=== PATIENT | male | born 1955 | race Hispanic/Latino ===

== ENCOUNTER 2016-08-09 06:35 | Day surgery (SDC) | payer OTHER ==
[2016-08-04 14:19] VITALS: BMI 26.6
[2016-08-09] MEDS ORDERED: Sevoflurane - Inhalation Anesthetic Liq (250 ml) ONE (07:17)
[2016-08-09 07:28] VITALS: RESP 18
[2016-08-09] MEDS ORDERED: Lactated Ringer's 1,000 ML IV ONE (08:00)
[2016-08-09] MEDS ORDERED: cefTRIAXone (Rocephin) 1 gm Inj ONE (08:38)
[2016-08-09] MEDS ORDERED: Chlorhexidine Gluconate 2OZ GEL TP ONE (08:39)
[2016-08-09] MEDS ORDERED: Midazolam 2 MG/2 ML VIAL ONE (08:56)
[2016-08-09] MEDS ORDERED: Propofol 10 mg/ml Inj (20 ML) ONE (08:56)
[2016-08-09] MEDS ORDERED: Succinylcholine 200 mg/10 ml Inj IV ONE (09:01)
[2016-08-09] MEDS ORDERED: cefTRIAXone (Rocephin) 1 gm Inj IVPB ONE (09:30)
[2016-08-09] MEDS ORDERED: HYDROmorphone 0.5 mg/0.5 ml ISec IVP PRN (10:05)
[2016-08-09 13:10] VITALS: BP 155/90; PULSE 67; TEMP 98.3; O2SAT 98
--- NOTE | 2016-08-10 17:01 | CARD ---
APPROVED REPORT EKG Measurement Heart [id number] <Conclusion> Normal sinus rhythm Normal ECG
--- NOTE | 2016-08-24 19:51 | OP ---
PROCEDURE DATE: 08/09/2016 PREOPERATIVE DIAGNOSIS: Urethral stricture. POSTOPERATIVE DIAGNOSIS: Multiple urethral strictures. PROCEDURE PERFORMED: Cystoscopy with an internal optical urethrotomy. DESCRIPTION OF PROCEDURE: The patient was placed on the operating room table in dorsal lithotomy pos ition, given general anesthesia. The area of the groin was draped and prepped in a sterile manner. At this time, using a cystoscope, I began to look into the urethra. Immediately at the proximal uret hra, there was noted to be a stricture. So at this time, I exchanged the cystoscope for a urethrotom e and I inserted a guidewire for safety and at this time, I began to incise at the 4 and 8 o'clock po sitions with an optical urethrotome. I passed by the first stricture. There was a secondary strictu re more proximal to the prostatic urethra and at this time, once these 2 strictures then were opened, the optical urethrotome then passed rather easily into the bladder. There was no unusual bladder wa ll finding. The prostate is only physiologically enlarged, not occlusive. At this time, I inserted a #22 [place] catheter into the bladder and the patient then was taken from the operating rudi m in good condition. Ariel Verma MD cc: 48 TT: 08/24/2016 19:49:54 saurav
== END 2016-08-09 13:24 | disposition home or self-care (01) ==
LOC: H.OPSURG 06:35
PROVIDERS: ATTEND Urology
DX: R33.8 Other retention of urine (principal); J45.909 Unspecified asthma, uncomplicated

== ENCOUNTER 2017-06-24 14:46 | Emergency (ER) | payer SELFPAY ==
[2017-06-24 14:46] VITALS: BMI 26.6
[2017-06-24 14:55] VITALS: RESP 18
--- NOTE | 2017-06-24 15:17 | ED PDOC ---
HPI: Male Pain Time Seen by Provider: 06/24/17 15:13 Chief Complaint (Nursing): Male Genitourinary Chief Complaint (Provider): URINARY HESITANCY History Per: Patient (61 Y/O MALE HERE WITH URINARY HESITANCY. SEEN BY DR. ROSA AND SENT TO ED FOR EVALUATION HE WAS UNABLE TO PLACE CATHETER IN OFFICE. DENIES ANY FEVERS/CHILLS.) Past Medical History Reviewed: Historical Data, Nursing Documentation, Vital Signs Vital Signs: Last Vital Signs Temp 98.6 F 06/24/17 14:52 Pulse 95 H 06/24/17 14:52 Resp 18 06/24/17 14:52 BP 161/102 H 06/24/17 14:52 Pulse Ox 98 06/24/17 14:52 - Medical History PMH: Asthma Denies: Chronic Kidney Disease - Family History Family History: States: Unknown Family Hx - Home Medications Home Medications: Ambulatory Orders Medication Instructions Recorded Albuterol HFA [Ventolin HFA 90 2 puff IH PRN PRN 08/09/16 mcg/actuation (8 g)] Cefuroxime Axetil [Cefuroxime] 500 mg PO BID #20 tablet 06/24/17 - Allergies Allergies/Adverse Reactions: Allergies Allergy/AdvReac Type Severity Reaction Status Date / Time No Known Allergies Allergy Verified 06/24/17 14:51 Review of Systems ROS Statement: Except As Marked, All Systems Reviewed And Found Negative Physical Exam - Reviewed Nursing Documentation Reviewed: Yes Vital Signs Reviewed: Yes - Physical Exam Appears: Positive for: Well, Non-toxic, No Acute Distress Head Exam: Positive for: ATRAUMATIC, NORMAL INSPECTION, NORMOCEPHALIC Skin: Positive for: Normal Color, Warm, DRY Eye Exam: Positive for: EOMI, Normal appearance, PERRL ENT: Positive for: Normal ENT Inspection Neck: Positive for: Normal, Painless ROM Cardiovascular/Chest: Positive for: Regular Rate, Rhythm Respiratory: Positive for: CNT, Normal Breath Sounds Gastrointestinal/Abdominal: Positive for: Normal Exam, Soft Back: Positive for: Normal Inspection Extremity: Positive for: Normal ROM Neurologic/Psych: Positive for: Alert, Oriented - Laboratory Results Result Diagrams: 06/24/17 17:28 06/24/17 17:28 - ECG O2 Sat by Pulse Oximetry: 98 - Progress ED Course And Treament: SEEN BY DR. HIGGINS IN ED. MORPHINE 2 MG IV X 1 DOSE ROCEPHIN 1 GM IV X 1 DOSE SUPRAPUBIC CATHETER PLACED BYDR. HIGGINS IN ED. PATIENT TO F/U WITH HIM OR DR. ROSA IN OFFICE. Disposition - Clinical Impression Clinical Impression: Urinary retention - Patient ED Disposition Is Patient to be Admitted: No - Disposition Referrals: Chris Higgins MD [Staff Provider] - Disposition: Routine/Home Disposition Time: 17:53 Condition: FAIR Prescriptions: Cefuroxime Axetil [Cefuroxime] 500 mg PO BID #20 tablet Instructions: Barnes Catheter, Male, Urinary Retention (DC) Forms: [facility] (Slovenian)
[2017-06-24] MEDS ORDERED: Lidocaine 2% Jelly (Uro-Jet) ONE ×2 (15:56→16:09)
[2017-06-24] MEDS ORDERED: Povidone Iodine Topical 10% Sol ONE (16:01)
[2017-06-24] MEDS ORDERED: cefTRIAXone (Rocephin) 1 gm Inj IVPB ONE (16:21)
[2017-06-24] MEDS ORDERED: cefTRIAXone (Rocephin) 1 gm Inj ONE (16:23)
[2017-06-24] MEDS ORDERED: Lidocaine Hydrochloride 1% 10 ML ONE ×3 (16:37→17:01)
[2017-06-24 17:32] LABS: BASO # 0.1 K/uL (0.0-0.2); EOS # 0.2 K/uL (0.0-0.7); EOS % 2.6 % (0.0-4.0); HEMOGLOBIN 14.4 g/dL (12.0-18.0); LYMPH # 1.2 K/uL (1.0-4.3); LYMPH % 13.7 % (20.0-40.0); MEAN CORPUSCULAR HEMOGLOBIN 26.8 pg (27.0-31.0); MEAN CORPUSCULAR HGB CONC 34.3 g/dL (33.0-37.0); MEAN PLATELET VOLUME 7.5 fl (7.2-11.7); MONO # 0.5 K/uL (0.0-0.8); MONO % 5.6 % (0.0-10.0); NEUT # 6.9 K/uL (1.8-7.0); NEUT % 77.1 % (50.0-75.0); RBC 5.39 Mil/uL (4.40-5.90); RED CELL DISTRIBUTION WIDTH 14.4 % (11.5-14.5); WHITE BLOOD COUNT 8.9 K/uL (4.8-10.8)
[2017-06-24] MEDS ORDERED: Lidocaine 1% Inj (20ml) IJ ONE ×2 (17:37→17:38)
[2017-06-24] MEDS ORDERED: Lidocaine 2% Jelly (Uro-Jet) TOP ONE ×2 (17:38→17:39)
[2017-06-24 17:41] LABS: BLOOD UREA NITROGEN 14 mg/dl (9-20); CALCIUM 8.7 mg/dL (8.4-10.2); GFR AFRICAN-AMERICAN > 60; GFR NON-AFRICAN AMERICAN > 60
[2017-06-24] MEDS ORDERED: Lidocaine 1% (10 ml) Inj INJ ONE (17:45)
[2017-06-24 17:51] LABS: INR 1.1 (0.9-1.2); PARTIAL THROMBOPLASTIN TIME 29.2 Seconds (25.6-37.1); PROTHROMBIN TIME 12.5 Seconds (9.8-13.1); SQUAMOUS EPITHIAL < 1 /hpf (0-5); URINE BACTERIA RARE (<OCC); URINE BILIRUBIN NEGATIVE (NEGATIVE); URINE BLOOD LARGE (NEGATIVE); URINE CLARITY SLIGHTY-CLOUDY (Clear); URINE COLOR YELLOW (YELLOW); URINE GLUCOSE (UA) NEG (Normal); URINE LEUKOCYTE ESTERASE NEG Leu/uL (Negative); URINE PROTEIN 30 mg/dL (NEGATIVE); URINE UROBILINOGEN 0.2-1.0 mg/dL (0.2-1.0)
[2017-06-24 18:00] VITALS: BP 118/78; PULSE 89; TEMP 98.3; O2SAT 100
--- NOTE | 2017-06-24 23:15 | CON ---
EMERGENCY ROOM CONSULTATION AND PROCEDURE DATE: 06/24/2017 TIME OF DICTATION: 5:30 p.m. BRIEF HISTORY: The patient is a 61-year-old white male currently being seen in ER for Dr. Ariel Verma with a history of bladder neck contracture treated by over the last year who underwent an optical cold knife incision of the bladder neck one year ago who presents to Dr. Verma's office again in acute urinary retention. Multiple attempts by Dr. Verma to insert a 14-Ivorian catheter met with resistance at the bladder neck area and also attempts to dilate this area with curved Bryan sounds also met with resistance at the bladder neck. Dr. Verma then sent the patient to the emergency room for evaluation and treatment. PAST MEDICAL HISTORY: The patient has a past medical history of asthma, currently treated with Ventolin inhaler. He has no history of any high blood pressure, diabetes, or hyperlipidemia. The patient had a bladder scan done in the emergency room, which showed about 1120 mL of residual urine in the bladder. An attempt to insert a 12-Ivorian Coude catheter that was resistance again in the prostatic fossa and placement of a 5-Ivorian filiform also met with resistance in the same area, I decided not to proceed with any dilatation with filiforms and followers at this time and just to put in a punch suprapubic cystostomy tube. ALLERGIES: HE HAS NO KNOWN ALLERGIES TO ANY MEDICATIONS. SOCIAL HISTORY: He is a very rare social drinker and no history of any tobacco use. PHYSICAL EXAMINATION: GENERAL: This is a well-developed and well-nourished white male. He is alert. He is oriented. HEENT: Grossly within normal limits. NECK: Supple. Thyroid not palpable. ABDOMEN: Soft and distended. [id number] suprapubic tenderness. No CVA tenderness. GENITALIA: The patient was circumcised with normal urethral meatus with blood coming from the penile meatus prior to any manipulation in the emergency room. His testicles are down bilaterally and nontender without masses. EXTREMITIES: He also has normal range of motion of both upper and lower extremities. In the emergency room, a bladder scan was done, which showed over 1100 mL of residual urine and 1% lidocaine was injected over the suprapubic area in the mid portion where the bladder scan showed majority of the urine. This was about 2 fingerbreadths above the symphysis pubis. Next, approximately 10 mL of 1% Xylocaine was injected subcutaneously towards the bladder area. Next, a 22-gauge spinal needle was then inserted in this area directly into the bladder with clear yuliet urine returned. Next, a small 5-mm skin incision was made adjacent to the spinal needle. This was deepened down to the subcutaneous tissue towards the bladder area. Next, a 14-gauge Tonia suprapubic catheter was then inserted directly into the bladder with a clear yuliet urine returned. The small incision was then sutured with 0 silk and then the flange of the Tonia catheter was sutured to the skin in 4 places. Sterile gauze dressing was applied to the wound, which was taped to the abdomen. The Tonia catheter was then connected to leg bag drainage. Over 400 to 500 mL of yuliet urine was almost immediately drained from the bladder and the patient became very comfortable at this time. DIAGNOSTIC IMPRESSION: For this patient is urinary retention secondary to bladder neck contracture. PLAN: The Patient can F/U with Dr. Verma or can be seen in office f/u in 1 week. Repeat bladder neck incision discussed with patient. Chris Mejia MD MTDD
== END 2017-06-24 18:11 | disposition home or self-care (01) ==
LOC: H.ER 14:46
DX: R33.9 Retention of urine, unspecified (principal); J45.909 Unspecified asthma, uncomplicated; E78.5 Hyperlipidemia, unspecified; N32.0 Bladder-neck obstruction
CPT/HCPCS: 51702; 80048; 81003; 85025; 85610; 85730; 87086; 96365; 96375; 99282; J0696; J2270

== ENCOUNTER 2017-07-14 08:05 | Emergency (ER) | payer MEDICAID, OTHER ==
[2017-07-14 08:06] VITALS: BMI 29.7
--- NOTE | 2017-07-14 08:33 | ED PDOC ---
HPI: Male Pain Time Seen by Provider: 07/14/17 08:20 Chief Complaint (Nursing): Male Genitourinary Chief Complaint (Provider): my catheter came out History Per: Patient History/Exam Limitations: no limitations Onset/Duration Of Symptoms: Days (1), Sudden Onset Severity: Moderate Quality Of Discomfort: Aching Associated Symptoms: Urinary Symptoms. denies: Nausea, Vomiting, Back Pain Alleviating Factors: None Additional Complaint(s): 61yo male c/o suprapubic pain and bladder fullness after his suprapubic catheter "broke" last night. States he urinated small amount this morning. States Dr Mejia placed catheter several days ago after trevino cath attempt was unsuccessful. States hes due for surgery w Dr Verma next week. Past Medical History Reviewed: Historical Data, Nursing Documentation, Vital Signs Vital Signs: Last Vital Signs Temp 99 F 07/14/17 08:10 Pulse 90 07/14/17 08:10 Resp 16 07/14/17 08:21 BP 156/102 H 07/14/17 08:10 Pulse Ox 96 07/14/17 08:10 - Medical History PMH: Asthma Denies: Chronic Kidney Disease - Surgical History Other surgeries: penile stricture - Family History Family History: States: Unknown Family Hx - Home Medications Home Medications: Ambulatory Orders Medication Instructions Recorded Albuterol HFA [Ventolin HFA 90 2 puff IH Q6 PRN 08/09/16 mcg/actuation (8 g)] Ciprofloxacin [Cipro] 500 mg PO BID #14 tab 07/14/17 - Allergies Allergies/Adverse Reactions: Allergies Allergy/AdvReac Type Severity Reaction Status Date / Time No Known Allergies Allergy Verified 07/14/17 13:19 Review of Systems Constitutional: Negative for: Fever Cardiovascular: Negative for: Chest Pain Gastrointestinal: Positive for: Abdominal Pain. Negative for: Nausea Genitourinary Male: Positive for: Frequency, Other (urinary hesitancy) Musculoskeletal: Negative for: Neck Pain, Back Pain Skin: Negative for: Rash, Lesions Neurological: Negative for: Weakness, Numbness, Headache Psych: Negative for: Suicidal ideation Physical Exam - Reviewed Nursing Documentation Reviewed: Yes Vital Signs Reviewed: Yes - Physical Exam Appears: Positive for: Non-toxic, No Acute Distress Head Exam: Positive for: ATRAUMATIC, NORMAL INSPECTION, NORMOCEPHALIC Skin: Positive for: Normal Color, Warm, DRY Eye Exam: Positive for: EOMI, Normal appearance, PERRL ENT: Positive for: Normal ENT Inspection Neck: Positive for: Normal, Painless ROM Cardiovascular/Chest: Positive for: Regular Rate, Rhythm Respiratory: Positive for: CNT, Normal Breath Sounds Gastrointestinal/Abdominal: Positive for: Soft. Negative for: Tenderness, Guarding Male Genital Exam: Positive for: other (suprapubic catheter fractured, entry site mildly erythematous ). Negative for: bleeding, urethral discharge Back: Positive for: Normal Inspection Extremity: Positive for: Normal ROM Neurologic/Psych: Positive for: Alert, Oriented. Negative for: Motor/Sensory Deficits - Laboratory Results Result Diagrams: 07/14/17 09:00 07/14/17 09:00 - ECG O2 Sat by Pulse Oximetry: 96 Medical Decision Making Medical Decision Making: check bladder scan, basic labs consult urology given suprapubic cath displacement/fracture labs reviewed Licensed Dispensing Optician normal d/w Dr Verma, to send patient to his office now w suprapubic cath kit for insertion Disposition - Clinical Impression Clinical Impression: Urinary retention - Patient ED Disposition Is Patient to be Admitted: No - Disposition Referrals: Ariel Verma MD [Medical Doctor] - Disposition: Routine/Home Disposition Time: 09:40 Condition: STABLE Additional Instructions: See Dr Verma for further care. Bring catheter kit with you to Dr Verma office. Prescriptions: Ciprofloxacin [Cipro] 500 mg PO BID #14 tab Instructions: Urinary Retention Forms: [facility] (Amharic)
[2017-07-14 09:11] LABS: BASO % 0.2 % (0.0-2.0); EOS # 0.1 K/uL (0.0-0.7); EOS % 0.6 % (0.0-4.0); HEMOGLOBIN 14.4 g/dL (12.0-18.0); LYMPH # 1.1 K/uL (1.0-4.3); LYMPH % 9.1 % (20.0-40.0); MEAN CELL VOLUME 77.7 fl (80.0-94.0); MEAN CORPUSCULAR HEMOGLOBIN 26.8 pg (27.0-31.0); MEAN CORPUSCULAR HGB CONC 34.4 g/dL (33.0-37.0); MEAN PLATELET VOLUME 7.3 fl (7.2-11.7); MONO # 0.8 K/uL (0.0-0.8); MONO % 6.7 % (0.0-10.0); NEUT # 10.3 K/uL (1.8-7.0); NEUT % 83.4 % (50.0-75.0); PLATELET COUNT 226 K/uL (130-400); RBC 5.36 Mil/uL (4.40-5.90); RED CELL DISTRIBUTION WIDTH 14.7 % (11.5-14.5); WHITE BLOOD COUNT 12.3 K/uL (4.8-10.8)
[2017-07-14 09:42] LABS: BLOOD UREA NITROGEN 18 mg/dl (9-20); CALCIUM 9.2 mg/dL (8.4-10.2); GFR AFRICAN-AMERICAN > 60; GFR NON-AFRICAN AMERICAN > 60; URINE BACTERIA OCC (<OCC); URINE BILIRUBIN NEGATIVE (NEGATIVE); URINE BLOOD MODERATE (NEGATIVE); URINE CLARITY TURBID (Clear); URINE COLOR AMBER (YELLOW); URINE GLUCOSE (UA) NEG (Normal); URINE LEUKOCYTE ESTERASE LARGE Leu/uL (Negative); URINE PROTEIN 100 mg/dL (NEGATIVE); URINE UROBILINOGEN 0.2-1.0 mg/dL (0.2-1.0); WBC CLUMPS FEW /hpf
[2017-07-14 10:43] VITALS: BP 163/95; PULSE 84; RESP 18; TEMP 98.6
[2017-07-14 11:11] LABS: LYMPHOCYTE 7 % (20-50); MONOCYTE 5 % (0-10); NEUTROPHIL 87 % (42-75); PLATELET ESTIMATE NORMAL (NORMAL); REACTIVE LYMPHOCYTES 1 % (0-0); TOTAL CELLS COUNTED 100
[2017-07-14] MEDS ORDERED: cefTRIAXone (Rocephin) 1 gm Inj ONE (14:35)
[2017-07-19 18:32] VITALS: O2SAT 96
== END 2017-07-14 10:53 | disposition home or self-care (01) ==
LOC: H.ER 08:05
DX: R33.9 Retention of urine, unspecified (principal); T83.028A Displacement of other urinary catheter, initial encounter; J45.909 Unspecified asthma, uncomplicated

== ENCOUNTER 2017-07-14 13:08 | Observation (INO) | payer MEDICAID, SELFPAY ==
[2017-07-14 13:10] VITALS: BMI 29.7
--- NOTE | 2017-07-14 14:14 | ED PDOC ---
HPI: General Adult Time Seen by Provider: 07/14/17 13:32 Chief Complaint (Nursing): Male Genitourinary Chief Complaint (Provider): i cant urinate History Per: Patient Recently: Seen In ED, Treated By A Physician Additional Complaint(s): 61yo male in urinary retention seen here earlier sent to urology office for catheter insertion, unable to complete in office, sent to ED for OR arrangement. States only able to urinate small amounts, has suprapubic fullness and pain. Had suprapubic catheter placed in ED several days ago but catheter broke, unclear if remnant remaining in bladder. Past Medical History Reviewed: Historical Data, Nursing Documentation, Vital Signs Vital Signs: Last Vital Signs Temp 98.0 F 07/14/17 13:19 Pulse 89 07/14/17 13:19 Resp 16 07/14/17 13:19 BP 152/96 H 07/14/17 13:19 Pulse Ox 97 07/14/17 14:16 - Medical History PMH: Asthma Denies: Chronic Kidney Disease - Family History Family History: States: Unknown Family Hx - Home Medications Home Medications: Ambulatory Orders Medication Instructions Recorded Albuterol HFA [Ventolin HFA 90 2 puff IH Q6 PRN 08/09/16 mcg/actuation (8 g)] Ciprofloxacin [Cipro] 500 mg PO BID #14 tab 07/14/17 - Allergies Allergies/Adverse Reactions: Allergies Allergy/AdvReac Type Severity Reaction Status Date / Time No Known Allergies Allergy Verified 07/14/17 13:19 - ECG O2 Sat by Pulse Oximetry: 97 Medical Decision Making Medical Decision Making: d/w Dr Verma admit OR labs from prior visit reviewed Dr Verma requested dose rocephin Urine Cx ordered prior Pt NPO since this morning Disposition - Clinical Impression Clinical Impression: UTI (urinary tract infection), Urinary retention - Patient ED Disposition Is Patient to be Admitted: Yes - Disposition Disposition Time: 13:35 Condition: STABLE - Pt Status Changed To: Hospital Disposition Of: Observation
[2017-07-14] MEDS ORDERED: Midazolam 2 MG/2 ML VIAL ONE (16:26)
[2017-07-14] MEDS ORDERED: Lidocaine 2% Jelly (5 ml) TOP ONE (16:26)
[2017-07-14] MEDS ORDERED: Propofol 10 mg/ml Inj (20 ML) ONE (16:26)
[2017-07-14] MEDS ORDERED: Lidocaine 1% 5ml Abboject IV ONE (16:26)
[2017-07-14] MEDS ORDERED: Lactated Ringer's 1,000 ML IV ONE ×2 (16:30→17:13)
[2017-07-14] MEDS ORDERED: Morphine 4 MG/ML VIAL IVP PRN (17:18)
[2017-07-14] MEDS ORDERED: Lactated Ringer's 1,000 ML IV SCH (17:30)
[2017-07-14 17:53] VITALS: RESP 18
[2017-07-14 18:41] VITALS: BP 140/94; PULSE 80; TEMP 98.8; O2SAT 98
--- NOTE | 2017-07-15 07:04 | OP ---
PROCEDURE DATE: 07/14/2017 PREOPERATIVE DIAGNOSIS: Urinary retention secondary to urethral stricture. POSTOPERATIVE DIAGNOSIS: Urinary retention secondary to urethral stricture. PROCEDURE PERFORMED: Cystoscopy with internal optical urethrotomy. DESCRIPTION OF PROCEDURE: The patient was placed in the operating table in dorsal lithotomy position. The area of the groin was draped and prepped in the sterile manner. Using an optical urethrotome, I entered into the urethra atraumatically, in the mid portion of the urethra there was an impassable stricture. I was able to get a sensor wire through this area and then using that as a guide I then used a cold knife to open it at the 10 and 4 o'clock position. Once this was done, the optical urethrotome then was able to go into the bladder easily. Once this was done, I left with the sensor wire place. I placed the 22-[place] cone [place] catheter into the bladder. The urine was clear. The patient then was taken from the operating room in good condition. Ariel Verma MD
== END 2017-07-14 19:05 | disposition home or self-care (01) ==
LOC: H.ER 13:08 → H.SDS 13:39 → H.ERHOLD 13:39
PROVIDERS: ADMIT Urology; ATTEND Urology
DX: N35.8 Other urethral stricture (principal); R33.8 Other retention of urine; N39.0 Urinary tract infection, site not specified; J45.909 Unspecified asthma, uncomplicated
CPT/HCPCS: 52276; 87086; G0378; J0696; J2250; J2270; J2704; J2765; J3010; J7120